=== PATIENT | male | born 1955 | race African-American/Black ===

== ENCOUNTER 2022-03-10 11:04 | Inpatient (IN) | payer OTHER, MEDICAID ==
[~2022-03-10] VITALS: Ht 315 cm; Wt 78.5 kg
[2022-03-10] MEDS ORDERED: CEFTRIAXONE 1 G PREMIX 50 ML IV NR (16:00)
[2022-03-10] MEDS ORDERED: AZITHROMYCIN 500MG/250ML 250 ML IV NR (16:00)
[2022-03-10 16:08] LABS: BASOPHILS % 0.3 % (0.0-2.0); EOSINOPHILS % 0.6 % (0.0-5.0); HEMATOCRIT. 21.3 % (42.0-52.0); HEMOGLOBIN. 7.2 g/dL (14.0-18.0); LYMPHOCYTES % 17.6 % (20.0-50.0); MEAN CORPUSCULAR HEMOGLOBIN 29.2 pg (28.0-32.0); MONOCYTES % 7.6 % (2.0-8.0); NEUTROPHILS % 73.9 % (40.0-76.0); PLATELET 355 x1000/uL (130-400); RED BLOOD CELL COUNT 2.45 mill/uL (4.7-6.1); RED CELL DISTRIBUTION WIDTH 14.3 % (11.6-14.6)
[2022-03-10 16:15] LABS: CHLORIDE 99 mEq/L (98-107)
[2022-03-10] MEDS ORDERED: POTASSIUM CHLORIDE 20MEQ/PACKET PO NR (17:15)
[2022-03-10] MEDS ORDERED: POTASSIUM CHLORIDE 20MEQ/PACKET PO ONE (20:00)
[2022-03-10 21:07] LABS: CHLORIDE 101 mEq/L (98-107)
[2022-03-11] VITALS (9 sets, daily range): BP systolic 92–130; BP diastolic 54–90
[2022-03-11] MEDS ORDERED: ACETAMINOPHEN 325MG TABLET PO PRN (02:15)
[2022-03-11] MEDS: MECLIZINE 12.5MG TABLET PO SCH ×3 (06:33→19:16)
[2022-03-11] MEDS: APIXABAN 5 MG TABLET PO SCH ×2 (09:55→21:00)
[2022-03-11 12:39] LABS: HEMATOCRIT 23.7 % (42.0-52.0); HEMOGLOBIN 7.8 g/dL (14.0-18.0); MEAN CORPUSCULAR HEMOGLOBIN 28.7 pg (28.0-32.0); MEAN CORPUSCULAR VOLUME 87.4 fL (80.0-94.0); PLATELET 386 x1000/uL (130-400); RED BLOOD CELL COUNT 2.71 mill/uL (4.7-6.1); RED CELL DISTRIBUTION WIDTH 14.6 % (11.6-14.6)
[2022-03-11] MEDS ORDERED: POTASSIUM CHLORIDE 20MEQ/PACKET PO NR ×2 (13:00→16:15)
[2022-03-11] MEDS ORDERED: LEVOFLOXACIN 750MG PREMIX 150 ML IV SCH (13:00)
[2022-03-11 13:07] LABS: CHLORIDE 100 mEq/L (98-107)
[2022-03-11] MEDS ORDERED: IOHEXOL-350 100 ML BOTTLE ONE (15:01)
[2022-03-11] MEDS: IPRATROPIUM/ALBUTEROL 0.5-3(2.5)MG/3ML NEB HHN SCH (15:55)
[2022-03-11] MEDS ORDERED: CEFTRIAXONE 2 G PREMIX 50 ML IV SCH (17:15)
[2022-03-11] MEDS ORDERED: AZITHROMYCIN 500 MG in DEXT 5% WATER 250 ML IV SCH (18:30)
[2022-03-11] MEDS ORDERED: CEFTRIAXONE 1,000 MG in DEXTROSE 5% WATER 50 ML IV SCH (20:00)
[2022-03-11] MEDS: METRONIDAZOLE 500 MG PREMIX 100 ML IV SCH (22:15)
[2022-03-11] MEDS: AZITHROMYCIN 500 MG in DEXT 5% WATER 250 ML IV SCH (22:15)
[2022-03-12] MEDS: MECLIZINE 12.5MG TABLET PO SCH ×4 (01:13→18:42)
[2022-03-12 04:00] VITALS: BP_SYST 102; BP_SYST 93; BP_DIAS 63; BP_DIAS 69
[2022-03-12] MEDS: METRONIDAZOLE 500 MG PREMIX 100 ML IV SCH ×3 (05:40→22:20)
[2022-03-12 08:33] LABS: BASOPHILS % 0.5 % (0.0-2.0); HEMATOCRIT. 23.5 % (42.0-52.0); HEMOGLOBIN. 7.8 g/dL (14.0-18.0); LYMPHOCYTES % 17.2 % (20.0-50.0); MEAN CORPUSCULAR HEMOGLOBIN 29.5 pg (28.0-32.0); MEAN CORPUSCULAR VOLUME 88.7 fL (80.0-94.0); MONOCYTES % 8.6 % (2.0-8.0); NEUTROPHILS % 72.7 % (40.0-76.0); PLATELET 378 x1000/uL (130-400); RED BLOOD CELL COUNT 2.65 mill/uL (4.7-6.1); RED CELL DISTRIBUTION WIDTH 14.8 % (11.6-14.6)
[2022-03-12 08:56] LABS: CHLORIDE 101 mEq/L (98-107)
[2022-03-12] MEDS: CEFTRIAXONE 2 G in DEXTROSE 5% WATER 50 ML IV SCH (09:14)
[2022-03-12] MEDS: APIXABAN 5 MG TABLET PO SCH ×2 (09:14→21:07)
[2022-03-12] MEDS: IPRATROPIUM/ALBUTEROL 0.5-3(2.5)MG/3ML NEB HHN SCH ×2 (14:47→22:09)
[2022-03-12 18:22] VITALS: BP 108/67
[2022-03-12 20:00] VITALS: BP 108/72
[2022-03-12] MEDS: AZITHROMYCIN 500 MG in DEXT 5% WATER 250 ML IV SCH (21:07)
[2022-03-13] VITALS: BP 117/75
[2022-03-13] MEDS: MECLIZINE 12.5MG TABLET PO SCH ×4 (00:07→19:00)
[2022-03-13] MEDS: IPRATROPIUM/ALBUTEROL 0.5-3(2.5)MG/3ML NEB HHN SCH ×5 (02:34→21:00)
[2022-03-13 04:00] VITALS: BP 114/69
[2022-03-13] MEDS: METRONIDAZOLE 500 MG PREMIX 100 ML IV SCH ×3 (05:15→22:32)
[2022-03-13 08:00] VITALS: BP 100/56
[2022-03-13] MEDS: APIXABAN 5 MG TABLET PO SCH ×2 (09:17→20:09)
[2022-03-13] MEDS: CEFTRIAXONE 2 G in DEXTROSE 5% WATER 50 ML IV SCH (09:17)
[2022-03-13 12:00] VITALS: BP 102/73
[2022-03-13] MEDS ORDERED: POTASSIUM CHLORIDE 20MEQ TABLET SR PO NR (15:30)
[2022-03-13 16:00] VITALS: BP 112/72
[2022-03-13 20:00] VITALS: BP 114/65
[2022-03-13] MEDS: AZITHROMYCIN 500 MG in DEXT 5% WATER 250 ML IV SCH (20:09)
[2022-03-14] VITALS: BP 104/63
[2022-03-14] MEDS: MECLIZINE 12.5MG TABLET PO SCH ×5 (00:22→23:36)
[2022-03-14 04:00] VITALS: BP 104/63
[2022-03-14] MEDS: METRONIDAZOLE 500 MG PREMIX 100 ML IV SCH ×3 (06:22→21:46)
[2022-03-14 08:00] VITALS: BP 107/50
[2022-03-14 08:01] LABS: BG BASE EXCESS -1.8 mmol/L (-2.0-2.0); BG CARBOXYHEMOGLOBIN 0.7 % (0.5-1.5); BG HCO3 ACT 21.2 mmol/L (22.0-26.0); BG OXYHEMOGLOBIN 95.3 % (94.0-97.0); BG PCO2 28.4 mmHg (35.0-45.0); BG PO2 83.3 mmHg (75.0-100.0); BG SAMPLE SITE RIGHT BRACHIAL; BG TOTAL HEMOGLOBIN 7.2 g/dL (12.0-18.0); BG VENT MODE ROOM AIR
[2022-03-14 08:26] LABS: BASOPHILS % 0.5 % (0.0-2.0); EOSINOPHILS % 0.9 % (0.0-5.0); HEMATOCRIT. 22.1 % (42.0-52.0); HEMOGLOBIN. 7.3 g/dL (14.0-18.0); MEAN CORPUSCULAR HEMOGLOBIN 29.4 pg (28.0-32.0); MEAN CORPUSCULAR VOLUME 88.3 fL (80.0-94.0); MEAN PLATELET VOLUME 6.9 fl (7.4-10.4); MONOCYTES % 8.6 % (2.0-8.0); PLATELET 372 x1000/uL (130-400)
[2022-03-14 08:39] LABS: D-DIMER 3.09 mg/L FEU (<0.50); INR 1.2; PROTHROMBIN TIME 13.2 sec (9.6-11.0)
[2022-03-14] MEDS: APIXABAN 5 MG TABLET PO SCH ×2 (09:07→20:50)
[2022-03-14] MEDS: CEFTRIAXONE 2 G in DEXTROSE 5% WATER 50 ML IV SCH (09:07)
[2022-03-14] MEDS: IPRATROPIUM/ALBUTEROL 0.5-3(2.5)MG/3ML NEB HHN SCH ×4 (09:35→21:45)
[2022-03-14 12:00] VITALS: BP 105/64
[2022-03-14 15:13] LABS: CHLORIDE 103 mEq/L (98-107)
[2022-03-14 16:00] VITALS: BP 98/64
[2022-03-14] MEDS ORDERED: POTASSIUM CHLORIDE 20MEQ TABLET SR PO NR (16:00)
[2022-03-14 20:00] VITALS: BP 112/68
[2022-03-14] MEDS: AZITHROMYCIN 500 MG in DEXT 5% WATER 250 ML IV SCH (20:49)
[2022-03-15] VITALS: BP 100/61
[2022-03-15] MEDS: IPRATROPIUM/ALBUTEROL 0.5-3(2.5)MG/3ML NEB HHN SCH ×4 (01:32→21:00)
[2022-03-15 04:00] VITALS: BP 99/62
[2022-03-15] MEDS: MECLIZINE 12.5MG TABLET PO SCH ×4 (05:47→23:32)
[2022-03-15] MEDS: METRONIDAZOLE 500 MG PREMIX 100 ML IV SCH ×3 (05:47→22:53)
[2022-03-15 08:00] VITALS: BP 96/57
[2022-03-15] MEDS: CEFTRIAXONE 2 G in DEXTROSE 5% WATER 50 ML IV SCH (08:28)
[2022-03-15] MEDS: APIXABAN 5 MG TABLET PO SCH ×2 (08:28→20:51)
[2022-03-15 12:00] VITALS: BP 113/70
[2022-03-15 16:00] VITALS: BP 92/62
[2022-03-15 20:00] VITALS: BP 101/67
[2022-03-15] MEDS: AZITHROMYCIN 500 MG in DEXT 5% WATER 250 ML IV SCH (20:51)
[2022-03-16] VITALS: BP 101/62
[2022-03-16] MEDS: IPRATROPIUM/ALBUTEROL 0.5-3(2.5)MG/3ML NEB HHN SCH ×4 (01:55→21:55)
[2022-03-16 04:39] VITALS: BP 104/72
[2022-03-16] MEDS: MECLIZINE 12.5MG TABLET PO SCH ×4 (05:29→23:54)
[2022-03-16] MEDS: METRONIDAZOLE 500 MG PREMIX 100 ML IV SCH ×3 (05:29→20:56)
[2022-03-16 07:08] LABS: QFT MITOGEN VALUE 0.23 IU/mL (.); QFT TB GOLD PLUS Indeterminate (Negative); QFT TB1 AG VALUE 0.05 IU/mL (.)
[2022-03-16 08:00] VITALS: BP 98/20
[2022-03-16] MEDS: APIXABAN 5 MG TABLET PO SCH ×2 (09:16→20:55)
[2022-03-16] MEDS: CEFTRIAXONE 2 G in DEXTROSE 5% WATER 50 ML IV SCH (09:16)
[2022-03-16 12:00] VITALS: BP 122/76
[2022-03-16 16:00] VITALS: BP 114/69
[2022-03-16 20:00] VITALS: BP 106/69
[2022-03-16 20:49] LABS: BASOPHILS % 0.4 % (0.0-2.0); CHLORIDE 107 mEq/L (98-107); EOSINOPHILS % 1.4 % (0.0-5.0); HEMATOCRIT. 23.5 % (42.0-52.0); HEMOGLOBIN. 7.8 g/dL (14.0-18.0); LYMPHOCYTES % 19.5 % (20.0-50.0); MEAN CORPUSCULAR HEMOGLOBIN 29.9 pg (28.0-32.0); MEAN CORPUSCULAR VOLUME 89.9 fL (80.0-94.0); MEAN PLATELET VOLUME 6.8 fl (7.4-10.4); MONOCYTES % 8.7 % (2.0-8.0); PLATELET 437 x1000/uL (130-400); RED BLOOD CELL COUNT 2.62 mill/uL (4.7-6.1); RED CELL DISTRIBUTION WIDTH 15.6 % (11.6-14.6)
[2022-03-17] VITALS: BP 110/65
[2022-03-17] MEDS: IPRATROPIUM/ALBUTEROL 0.5-3(2.5)MG/3ML NEB HHN SCH ×4 (03:10→21:26)
[2022-03-17 04:00] VITALS: BP 114/64
[2022-03-17] MEDS: MECLIZINE 12.5MG TABLET PO SCH ×4 (05:41→23:54)
[2022-03-17] MEDS: APIXABAN 5 MG TABLET PO SCH (09:20)
[2022-03-17 12:00] VITALS: BP 112/67
[2022-03-17 16:00] VITALS: BP 115/57
[2022-03-17 20:00] VITALS: BP 127/83
[2022-03-17] MEDS: ENOXAPARIN 80MG/0.8ML SYR SUBCUT SCH (21:03)
[2022-03-18] VITALS: BP 124/76
[2022-03-18] MEDS ORDERED: POTASSIUM CHLORIDE 20MEQ TABLET SR PO NR
[2022-03-18] MEDS: IPRATROPIUM/ALBUTEROL 0.5-3(2.5)MG/3ML NEB HHN SCH ×4 (03:00→20:37)
[2022-03-18 04:00] VITALS: BP 132/77
[2022-03-18] MEDS: MECLIZINE 12.5MG TABLET PO SCH ×4 (05:43→23:10)
[2022-03-18 08:00] VITALS: BP 106/66
[2022-03-18] MEDS: ENOXAPARIN 80MG/0.8ML SYR SUBCUT SCH ×2 (08:48→21:03)
[2022-03-18 12:00] VITALS: BP 105/61
[2022-03-18 16:11] VITALS: BP 98/59
[2022-03-18 20:00] VITALS: BP 106/66
[2022-03-19] VITALS: BP 117/68
[2022-03-19] MEDS: IPRATROPIUM/ALBUTEROL 0.5-3(2.5)MG/3ML NEB HHN SCH ×4 (01:40→21:40)
[2022-03-19 04:00] VITALS: BP 115/64
[2022-03-19] MEDS: MECLIZINE 12.5MG TABLET PO SCH ×2 (06:00→12:00)
[2022-03-19 08:00] VITALS: BP 121/60
[2022-03-19 08:22] LABS: BASOPHILS % 0.6 % (0.0-2.0); EOSINOPHILS % 1.7 % (0.0-5.0); HEMATOCRIT. 22.3 % (42.0-52.0); HEMOGLOBIN. 7.4 g/dL (14.0-18.0); LYMPHOCYTES % 20.4 % (20.0-50.0); MEAN CORPUSCULAR HEMOGLOBIN 29.2 pg (28.0-32.0); MEAN CORPUSCULAR VOLUME 88.4 fL (80.0-94.0); MONOCYTES % 8.3 % (2.0-8.0); PLATELET 419 x1000/uL (130-400); RED BLOOD CELL COUNT 2.53 mill/uL (4.7-6.1)
[2022-03-19] MEDS: ENOXAPARIN 80MG/0.8ML SYR SUBCUT SCH ×2 (08:44→22:19)
[2022-03-19 08:58] LABS: CHLORIDE 109 mEq/L (98-107)
[2022-03-19 12:00] VITALS: BP 105/70
[2022-03-19 16:00] VITALS: BP 129/78
[2022-03-19] MEDS: MECLIZINE 25MG TABLET PO SCH (17:37)
[2022-03-19] MEDS ORDERED: POTASSIUM CHLORIDE 20MEQ TABLET SR PO NR (19:45)
[2022-03-19 20:00] VITALS: BP 131/77
[2022-03-20] VITALS (16 sets, daily range): BP systolic 104–135; BP diastolic 62–91
[2022-03-20] MEDS: IPRATROPIUM/ALBUTEROL 0.5-3(2.5)MG/3ML NEB HHN SCH ×4 (00:30→20:21)
[2022-03-20] MEDS: MECLIZINE 25MG TABLET PO SCH ×5 (01:45→17:21)
[2022-03-20] MEDS ORDERED: FENTANYL CITRATE/PF 50MCG/ML 2ML VIAL ONE (10:59)
[2022-03-20] MEDS ORDERED: FENTANYL CITRATE/PF 50MCG/ML 2ML VIAL IV NR (12:15)
[2022-03-20] MEDS: ENOXAPARIN 80MG/0.8ML SYR SUBCUT SCH ×2 (13:13→21:57)
[2022-03-20 16:20] LABS: BG BASE EXCESS -3.1 mmol/L (-2.0-2.0); BG CARBOXYHEMOGLOBIN 0.2 % (0.5-1.5); BG DEOXYHEMOGLOBIN 5.5 % (0.0-5.0); BG FRACTION INSPIRED OXYGEN 21; BG METHEMOGLOBIN 0.3 % (0.0-1.5); BG OXYGEN SATURATION 94.5 % (92.0-98.5); BG PCO2 28.3 mmHg (35.0-45.0); BG PH 7.468 (7.350-7.450); BG PO2 78.6 mmHg (75.0-100.0); BG SAMPLE SITE RIGHT RADIAL; BG TOTAL HEMOGLOBIN 8.1 g/dL (12.0-18.0); BG VENT MODE ROOM AIR
[2022-03-21] VITALS: BP 112/71
[2022-03-21] MEDS: MECLIZINE 25MG TABLET PO SCH ×4 (00:52→17:21)
[2022-03-21] MEDS: IPRATROPIUM/ALBUTEROL 0.5-3(2.5)MG/3ML NEB HHN SCH ×4 (01:12→20:20)
[2022-03-21 04:00] VITALS: BP 107/70
[2022-03-21 08:00] VITALS: BP_SYST 117; BP_SYST 119; BP_SYST 120; BP_DIAS 78; BP_DIAS 79; BP_DIAS 84
[2022-03-21] MEDS: ENOXAPARIN 80MG/0.8ML SYR SUBCUT SCH ×2 (08:19→21:26)
[2022-03-21 12:00] VITALS: BP 112/72
[2022-03-21 16:00] VITALS: BP 130/86
[2022-03-21 20:00] VITALS: BP 124/71
[2022-03-22] VITALS: BP 115/68
[2022-03-22] MEDS: MECLIZINE 25MG TABLET PO SCH ×4 (01:23→17:17)
[2022-03-22] MEDS: IPRATROPIUM/ALBUTEROL 0.5-3(2.5)MG/3ML NEB HHN SCH ×4 (02:05→21:20)
[2022-03-22 04:00] VITALS: BP 102/63
[2022-03-22 07:12] LABS: HIV SCREEN 4G Non Reactive (Non Reactive)
[2022-03-22 08:00] VITALS: BP 108/73
[2022-03-22] MEDS: ENOXAPARIN 80MG/0.8ML SYR SUBCUT SCH (08:52)
[2022-03-22 12:00] VITALS: BP 111/73
[2022-03-22 16:00] VITALS: BP 123/74
[2022-03-22 18:21] VITALS: BP 111/73
== END 2022-03-22 21:35 | disposition home or self-care (01) | DRG 871 ==
LOC: ER 11:04 → 6WST 18:00 → EDBEDREQ 18:12 → EDBEDREQTM 18:12 → 6WST 03-12 06:42 → 7WST 03-16 18:22
PROVIDERS: ADMIT Internal Medicine; ATTEND Internal Medicine
PROC: 0BBJ3ZX Excision of Left Lower Lung Lobe, Percutaneous Approach, Diagnostic (ICD-10-PCS; principal; 2022-03-20)
DX: A41.9 Sepsis, unspecified organism (principal); E43 Unspecified severe protein-calorie malnutrition; J85.1 Abscess of lung with pneumonia; I26.99 Other pulmonary embolism without acute cor pulmonale; R65.21 Severe sepsis with septic shock; E87.1 Hypo-osmolality and hyponatremia; J44.0 Chronic obstructive pulmonary disease with (acute) lower respiratory infection; Z68.1 Body mass index [BMI] 19.9 or less, adult; F17.210 Nicotine dependence, cigarettes, uncomplicated; D63.8 Anemia in other chronic diseases classified elsewhere; E87.6 Hypokalemia; Z20.822 Contact with and (suspected) exposure to COVID-19; I10 Essential (primary) hypertension; Z86.718 Personal history of other venous thrombosis and embolism; Z88.8 Allergy status to other drugs, medicaments and biological substances
CPT/HCPCS: 32408; 36415; 36600; 71045; 71275; 80048; 80053; 82375; 82805; 83735; 84132; 84145; 84484; 85025; 85027; 85379; 86480; 86635; 87102; 87116; 87389; 87426; 93005; 93306; 94618; 94640; 97116; 97162; 99285; A6261; C9803; J0456; J0696; J1650; J1956; J3010; J3490; J7060; J8597; Q9967